=== PATIENT | male | born 1985 | race Caucasian/White ===

== ENCOUNTER 2017-05-17 13:34 | Emergency (ER) | payer OTHER ==
[2017-05-17] MEDS ORDERED: ONDANSETRON INJ 4 MG/2 ML VIAL ONE (13:45)
[2017-05-17] MEDS ORDERED: ONDANSETRON ODT 8 MG TAB SL ONE (13:45)
[2017-05-17] MEDS ORDERED: SODIUM CHLORIDE 0.9% 1000ML 1,000 ML IVS ONE (13:53)
--- NOTE | 2017-05-17 14:05 | RAD ---
Procedure: XR CHEST 1 VIEW Exam Date: 05/17/2017 1:52 PM [facility] Ordering Provider: Dioni Nguyen Clinical Indication: sob, near syncope after exercise Comparison: None Findings: Lungs are clear. Heart size is within normal limits. No acute osseous abnormality. Impression: No acute pulmonary process. Electronically signed by: Gabriel Ladd MD 05/17/2017 2:04 PM [facility]
[2017-05-17] MEDS ORDERED: ONDANSETRON INJ 4 MG/2 ML VIAL IV ONE (14:06)
--- NOTE | 2017-05-17 16:10 | ED.PDOC ---
History of Present Illness - General Chief Complaint: Respiratory Problem Stated Complaint: Feels short of breath Time Seen by Provider: 05/17/17 13:36 Source: patient Exam Limitations: no limitations - History of Present Illness Initial Comments: the patient is a 31-year-old male presenting to the emergency room secondary to feeling of weakness, shortness of breath and palpitations after finishing his workout. immediately after arriving here he threw up for 5 minutes and then no more. he felt much better after throwing up. No blood and no bile.He is taking Tamiflu as a prophylactic dose secondary to other people being sick around him. He is in the . He has not had any previous issues of shortness of breath or palpitations after episodes of upset exercise. No history of any congenital cardiac defects. No new medications aside from above. No syncope. He did feel dizzy. He is mildly tachycardic upon arrival here as would be expected after a workout. He is pleasant and cooperative. He is diaphoretic his should be after a workout. Timing/Duration: 1/2 hour Severity: moderate Improving Factors: nothing Worsening Factors: nothing Associated Symptoms: diaphoresis, malaise, nausea/vomiting, shortness of breath , weakness Allergies/Adverse Reactions: Allergies NO KNOWN ALLERGY Allergy (Verified 05/17/17 13:58) Home Medications: Ambulatory Orders Ondansetron [Zofran Odt] 4 mg PO Q4H PRN #10 tab 05/17/17 Review of Systems - Review of Systems Constitutional: States: malaise, weakness - generalized EENTM: States: no symptoms reported Respiratory: States: short of breath Cardiology: States: palpitations Gastrointestinal/Abdominal: States: no symptoms reported Genitourinary: States: no symptoms reported Musculoskeletal: States: no symptoms reported Skin: States: no symptoms reported Neurological: States: anxiety, other - dizzy Endocrine: States: excessive sweating Hematologic/Lymphatic: States: no symptoms reported All other Systems: No Change from Baseline Past Medical History (General) - Patient Medical History Hx Stroke: No Hx Congestive Heart Failure: No Hx Diabetes: No Surgical History: other - Vaccination History Hx Influenza Vaccination: No - Social History Hx Tobacco Use: No Family Medical History - Family History Father Living Status: Still Living Hx Cardiac Disease: Yes - A fib Physical Exam - Physical Exam General Appearance: Alert, Anxious Eye Exam: bilateral normal Ears, Nose, Throat: hearing grossly normal, normal ENT inspection, normal pharynx Neck: full range of motion, supple Respiratory: lungs clear, normal breath sounds, no respiratory distress, no accessory muscle use Cardiovascular/Chest: normal peripheral pulses, no edema, tachycardia - but regular Peripheral Pulses: radial,right: 2+, radial,left: 2+, dorsalis pedis,right: 2+, dorsalis pedis,left: 2+ Gastrointestinal/Abdominal: non tender, soft Rectal Exam: deferred Back Exam: normal inspection, no CVA tenderness, no vertebral tenderness Extremity: normal range of motion, non-tender, normal inspection, no pedal edema , normal capillary refill 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 He threw up several times. The patient is taking Tamiflu which possibly in conjunction with the exercise may have led to the episode observed. Lab work appears grossly normal. EKG and chest x-ray are reassuring. I recommended the patient keep well-hydrated. He did receive a liter of IV fluids here. Additionally he should probably take some omeprazole for the next month. He'll also be written for Zofran for as needed use for any further vomiting. he is feeling improved at this point. ER warnings were given for any worsening. He should plan on following up with his primary care doctor around the middle of next week. Avoid overheating while taking the Tamiflu. - Results/Orders Results/Orders: Laboratory Tests 05/17/17 05/17/17 05/17/17 14:00 14:00 14:00 WBC 7.5 RBC 5.09 Hgb 15.7 Hct 45.4 MCV 89.2 MCH 30.9 MCHC 34.7 RDW 12.2 Plt Count 329 MPV 7.3 L Absolute Neuts (auto) 3.80 Absolute Lymphs (auto) 3.20 Absolute Monos (auto) 0.40 Absolute Eos (auto) 0.10 Absolute Basos (auto) 0.00 Neutrophils % 50.3 Lymphocytes % 42.5 Monocytes % 4.7 Eosinophils % 1.9 Basophils % 0.6 D-Dimer, Quantitative < 230 Sodium Potassium Chloride Carbon Dioxide Anion Gap BUN Creatinine BUN/Creatinine Ratio Random Glucose Serum Osmolality Calcium Magnesium 2.6 H Total Bilirubin AST ALT Alkaline Phosphatase Creatine Kinase 124 CK-MB (CK-2) 1.6 CK-MB (CK-2) % Not Reportable Troponin I < 0.02 B-Natriuretic Peptide < 5.0 Serum Total Protein Albumin Globulin Albumin/Globulin Ratio TSH 1.38 05/17/17 14:43 WBC RBC Hgb Hct MCV MCH MCHC RDW Plt Count MPV Absolute Neuts (auto) Absolute Lymphs (auto) Absolute Monos (auto) Absolute Eos (auto) Absolute Basos (auto) Neutrophils % Lymphocytes % Monocytes % Eosinophils % Basophils % D-Dimer, Quantitative Sodium 140 Potassium 4.3 Chloride 106 Carbon Dioxide 23 Anion Gap 15.3 BUN 15 Creatinine 1.13 BUN/Creatinine Ratio 13.3 Random Glucose 138 H Serum Osmolality 282.4 Calcium 9.7 Magnesium Total Bilirubin 0.9 AST 26 ALT 40 Alkaline Phosphatase 74 Creatine Kinase CK-MB (CK-2) CK-MB (CK-2) % Troponin I B-Natriuretic Peptide Serum Total Protein 8.1 Albumin 4.6 Globulin 3.5 Albumin/Globulin Ratio 1.3 TSH EKG shows(a normal sinus rhythm at 90 bpm. Telemetry had shown a mild sinus tachycardia. Normal QT corrected interval. No acute ST segment changes concerning for ischemia. No diffuse Q waves to indicate hypertrophic cardiomyopathy. Normal axis. Chest x-ray shows no acute pathology. Departure - Departure Clinical Impression: Vomiting Qualifiers: Vomiting type: unspecified Vomiting Intractability: non-intractable Nausea presence: with nausea Qualified Code(s): R11.2 - Nausea with vomiting, unspecified Disposition: Discharge to Home or Self Care Condition: Fair Departure Forms: ED Discharge - Pt. Copy, Patient Portal Self Enrollment Instructions: DI for Vomiting -- Adult Diet: regular diet Activity: increase activity as tolerated Referrals: Colton Marquez MD [Primary Care Provider] - 1-5 Days Prescriptions: Ondansetron [Zofran Odt] 4 mg PO Q4H PRN #10 tab PRN Reason: Vomiting Home Medications: Ambulatory Orders Ondansetron [Zofran Odt] 4 mg PO Q4H PRN #10 tab 05/17/17 Additional Instructions: the patient is a 31-year-old male that felt poorly after exercising today. He threw up several times. The patient is taking Tamiflu which possibly in conjunction with the exercise may have led to the episode observed. Lab work appears grossly normal. EKG and chest x-ray are reassuring. I recommended the patient keep well-hydrated. He did receive a liter of IV fluids here. Additionally he should probably take some omeprazole for the next month. He'll also be written for Zofran for as needed use for any further vomiting. he is feeling improved at this point. ER warnings were given for any worsening. He should plan on following up with his primary care doctor around the middle of next week. Avoid overheating while taking the Tamiflu.
[2017-05-17 16:29] VITALS: BP 109/67; TEMP 97.6; O2SAT 99
== END 2017-05-17 16:25 | disposition home or self-care (01) ==
LOC: ER 13:34
DX: R11.2 Nausea with vomiting, unspecified (principal)
CPT/HCPCS: 36415; 71045; 80053; 82550; 82553; 82948; 83735; 83880; 84443; 84484; 85025; 85379; 87502; 93005; J2405; J7030

== ENCOUNTER 2018-07-02 19:12 | Emergency (ER) | payer BC, OTHER ==
[2018-07-02] MEDS ORDERED: HYDROcodone 10MG/APAP 325MG 1 EA TAB PO ONE (19:44)
--- NOTE | 2018-07-02 19:46 | RAD ---
EXAM: Ankle,Right 3 Views CLINICAL INDICATION: Right ankle pain COMPARISON: There is no previous study for comparison. FINDINGS:Three views of the right ankle reveal no fracture. The ankle mortise and talar dome are intact. The osseous structures appear intact and unremarkable. No radiopaque foreign bodies are identified. There is no bony destruction to suggest osteomyelitis. IMPRESSION: Negative right ankle radiographs. Electronically signed by: Tanner Guerra MD 07/02/2018 7:43 PM [facility]
--- NOTE | 2018-07-02 19:46 | ED.PDOC ---
History of Present Illness - General Chief Complaint: Lower Extremity Injury Stated Complaint: Right ankle pain after being hit with softball Time Seen by Provider: 07/02/18 19:42 Source: patient, RN notes reviewed Additional Information: 32 YEAR OLD INJURED RIGHT ANKLE PLAYING SOCCER HE HAS A TENDER MEDIAL MALLEOLI NO NEUROVASCULAR DEFICIT LOCAL SWELLING NOTED - History of Present Illness Timing/Duration: 1 hour Severity: moderate Improving Factors: immobilization Worsening Factors: movement Associated Symptoms: denies symptoms Allergies/Adverse Reactions: Allergies Sulfa Antibiotics Allergy (Verified 07/02/18 19:34) Home Medications: Ambulatory Orders Ondansetron [Zofran Odt] 4 mg PO Q4H PRN #10 tab 05/17/17 Acetamin W/Cod #3 Tab [Tylenol w/CODEINE #3] 1 ea PO Q6HR PRN #40 tab 07/02/18 Review of Systems - Review of Systems Constitutional: States: no symptoms reported EENTM: States: no symptoms reported Respiratory: States: no symptoms reported Cardiology: States: no symptoms reported Gastrointestinal/Abdominal: States: no symptoms reported Genitourinary: States: no symptoms reported Musculoskeletal: States: no symptoms reported Skin: States: no symptoms reported Neurological: States: no symptoms reported Endocrine: States: no symptoms reported Hematologic/Lymphatic: States: no symptoms reported Past Medical History (General) - Patient Medical History Hx Stroke: No Hx Congestive Heart Failure: No Hx Diabetes: No - Vaccination History Hx Influenza Vaccination: No - Social History Hx Tobacco Use: No Family Medical History - Family History Father Living Status: Still Living Hx Cardiac Disease: Yes - A fib Physical Exam - Physical Exam General Appearance: Alert, Comfortable Ears, Nose, Throat: hearing grossly normal, normal ENT inspection, normal pharynx Neck: non-tender, full range of motion, supple Respiratory: chest non-tender, lungs clear, normal breath sounds, no respiratory distress, no accessory muscle use Cardiovascular/Chest: normal peripheral pulses, regular rate, rhythm, no edema, no gallop Gastrointestinal/Abdominal: normal bowel sounds, non tender, no organomegaly Extremity: other - TENDER OVER THE RIGHT MEDIAL MALLEOLUS 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 Copy, Patient Portal Self Enrollment Instructions: DI for Leg Pain Activity: no exercise, no lifting, no pushing/pulling with affected limb Referrals: Colton Marquez MD [Primary Care Provider] - 1-2 Weeks Prescriptions: Acetamin W/Cod #3 Tab [Tylenol w/CODEINE #3] 1 ea PO Q6HR PRN #40 tab PRN Reason: Mild To Moderate Pain Home Medications: Ambulatory Orders Ondansetron [Zofran Odt] 4 mg PO Q4H PRN #10 tab 05/17/17 Acetamin W/Cod #3 Tab [Tylenol w/CODEINE #3] 1 ea PO Q6HR PRN #40 tab 07/02/18
[2018-07-02 20:53] VITALS: TEMP 98.8; O2SAT 97
[2018-07-02 20:54] VITALS: BP 114/73
== END 2018-07-02 20:33 | disposition home or self-care (01) ==
LOC: ER 19:12
DX: S93.401A Sprain of unspecified ligament of right ankle, initial encounter (principal); Z88.2 Allergy status to sulfonamides; W21.07XA Struck by softball, initial encounter; Y93.66 Activity, soccer; Y92.9 Unspecified place or not applicable